=== PATIENT | female | born 1965 | race Caucasian/White ===

== ENCOUNTER 2018-11-01 21:22 | Emergency (ER) | payer OTHER ==
[~2018-11-01] VITALS: Ht 165.1 cm; Wt 79.0 kg
[2018-11-01] MEDS ORDERED: MORPHINE SULFATE 4 MG/ML CPJ (NOT FOR IM USE) IV ONE (22:45)
[2018-11-01] MEDS ORDERED: KETOROLAC 15MG/ML VIAL IV ONE (22:45)
[2018-11-02] MEDS ORDERED: MORPHINE SULFATE 4 MG/ML CPJ (NOT FOR IM USE) IV ONE (01:00)
[2018-11-02 01:25] VITALS: BP 101/56
== END 2018-11-02 01:58 | disposition home or self-care (01) ==
LOC: ER 21:22
DX: S20.212A Contusion of left front wall of thorax, initial encounter (principal); W18.2XXA Fall in (into) shower or empty bathtub, initial encounter; Y93.89 Activity, other specified; Y92.89 Other specified places as the place of occurrence of the external cause; Y99.8 Other external cause status
CPT/HCPCS: 71101; 96374; 96375; 96376; 99283; J1885; J2270; Z7610